=== PATIENT | female | born 1985 ===

== ENCOUNTER 2017-07-20 12:50 | Emergency (ER) | payer OTHER ==
[2017-07-20 13:09] VITALS: BP 106/74; PULSE 71; RESP 18; TEMP 97.1; O2SAT 99
--- NOTE | 2017-07-20 14:03 | ED PDOC ---
HPI: CCC, URI, Sore Throat Time Seen by Provider: 07/20/17 13:26 Chief Complaint (Nursing): Flu-like Symptoms Chief Complaint (Provider): Cough and Fever History Per: Patient History/Exam Limitations: no limitations Onset/Duration Of Symptoms: Days (20) Current Symptoms Are (Timing): Still Present Location Of Pain: None Sick Contacts (Context): None Associated Symptoms: Fever, Sore Throat Ear Symptoms: Bilateral: None Additional Complaint(s): 31 year old female with past medical history of gastritis presents to the ED for subjective fever, cough and sore throat x20 days. The patient states that she has been taking nyquil and acetaminophen for her symptoms but they have offered no relief. Patient also reports that her cough gets worse at night and she gets chest pains when she coughs. PMD: Ramesh Thrasher Past Medical History Reviewed: Historical Data, Nursing Documentation, Vital Signs Vital Signs: Last Vital Signs Temp 97.1 F L 07/20/17 13:04 Pulse 71 07/20/17 13:04 Resp 18 07/20/17 13:04 BP 106/74 07/20/17 13:04 Pulse Ox 99 07/20/17 14:18 - Medical History PMH: Gastritis - Surgical History Surgical History: No Surg Hx - Family History Family History: States: Unknown Family Hx - Living Arrangements Living Arrangements: With Family - Social History Current smoker - smoking cessation education provided: No Ex-Smoker (has not smoked in the last 12 months): No Alcohol: None Drugs: Denies - Immunization History Hx Tetanus Toxoid Vaccination: No Hx Influenza Vaccination: No Hx Pneumococcal Vaccination: No - Home Medications Home Medications: Ambulatory Orders Medication Instructions Recorded Dextromethorphan Polistirex 30 mg PO BID #100 karen.er.12h 07/20/17 [Delsym] Guaifenesin [Mucinex] 600 mg PO BID #14 tab.er.12h 07/20/17 - Allergies Allergies/Adverse Reactions: Allergies Allergy/AdvReac Type Severity Reaction Status Date / Time No Known Allergies Allergy Verified 07/20/17 13:04 Review of Systems Constitutional: Positive for: Fever (subjective) ENT: Positive for: Throat Pain Cardiovascular: Positive for: Chest Pain (w/ coughing) Respiratory: Positive for: Cough (dry) Physical Exam - Reviewed Nursing Documentation Reviewed: Yes Vital Signs Reviewed: Yes - Physical Exam Appears: Positive for: Non-toxic, No Acute Distress Head Exam: Positive for: NORMAL INSPECTION Skin: Positive for: Normal Color, Warm, Dry. Negative for: Rash Eye Exam: Positive for: Normal appearance, EOMI, PERRL. Negative for: Nystagmus ENT: Positive for: Pharyngeal Erythema, Other (Post nasal drip). Negative for: Normal ENT Inspection (No sinus tenderness), Tonsillar Swelling Cardiovascular/Chest: Positive for: Regular Rate, Rhythm, Chest Non Tender. Negative for: Tachycardia Respiratory: Positive for: Normal Breath Sounds. Negative for: Rhonchi, Wheezing, Respiratory Distress Neurologic/Psych: Positive for: Alert, Oriented - ECG O2 Sat by Pulse Oximetry: 99 (RA) Pulse Ox Interpretation: Normal - Radiology X-Ray: Interpreted by Me X-Ray Interpretation: No Acute Disease Medical Decision Making Medical Decision Makin Initial Impression 31 y/o female presenting with cough and fever Initial Plan: * Chest Xray * Reevaluation Documented by Sury Perez acting as a scribe for Marysol Lawton PA-C. All medical record entries made by the Scribe were at my direction and personally dictated by me. I have reviewed the chart and agree that the record accurately reflects my personal performance of the history, physical exam, medical decision making, and the department course for this patient. I have also personally directed, reviewed, and agree with the discharge instructions and disposition. Disposition - Clinical Impression Clinical Impression: Post-nasal drip, Bronchitis - Disposition Referrals: [facility] [Outside] Disposition Time: 17:20 Condition: STABLE Prescriptions: Dextromethorphan Polistirex [Delsym] 30 mg PO BID #100 karen.er.12h Guaifenesin [Mucinex] 600 mg PO BID #14 tab.er.12h Instructions: Sinusitis (ED), Rhinosinusitis (ED) Print Language: ALBANIAN
--- NOTE | 2017-07-20 14:24 | RAD ---
HISTORY: cough COMPARISON: No prior. TECHNIQUE: Chest PA and lateral FINDINGS: LUNGS: No active pulmonary disease. PLEURA: No significant pleural effusion identified. No pneumothorax apparent. CARDIOVASCULAR: Normal. OSSEOUS STRUCTURES: No significant abnormalities. VISUALIZED UPPER ABDOMEN: Normal. OTHER FINDINGS: None. IMPRESSION: No active disease.
== END 2017-07-20 14:22 | disposition home or self-care (01) ==
LOC: H.ER 12:50
DX: J40 Bronchitis, not specified as acute or chronic (principal); R09.82 Postnasal drip; Z87.891 Personal history of nicotine dependence